=== PATIENT | female | born 2000 | race Caucasian/White ===

== ENCOUNTER 2019-05-09 11:25 | Outpatient (REF) | payer BC, SELFPAY ==
[2019-05-10 15:19] LABS: Chlamydia Result Negative; GC Result Negative; Specimen Description URINE
== END 2019-05-09 11:45 ==
LOC: LBN 11:25
PROVIDERS: PCP Pediatrics; Visit Provider Nurse Practitioner Women's Health
DX: Z11.3 Encounter for screening for infections with a predominantly sexual mode of transmission (principal)
CPT/HCPCS: 87491; 87591

== ENCOUNTER 2020-05-04 07:32 | Outpatient (CLI) | payer BC, SELFPAY ==
[2020-05-05 22:12] LABS: SARS-CoV-2 RNA Undetected (Undetected); SARS-CoV-2 Specimen Source Nasopharynx
== END 2020-05-04 07:52 ==
PROVIDERS: PCP Pediatrics; Visit Provider Pediatrics
DX: Z11.59 Encounter for screening for other viral diseases (principal)
CPT/HCPCS: U0003

== ENCOUNTER 2022-05-23 15:23 | Outpatient (REF) | payer BC, OTHER, SELFPAY ==
--- NOTE | 2022-05-23 13:45 | PAPFT_PTH ---
PATIENT: Darlene Vogt LOC: [facility] U#:[id number] AGE/SX: 21/F ROOM: RE05/23/[address]: Patrizia Chaves NP : 2000 BED: DIS: 05/23/2022 SPEC #: [id number] RECD: 05/23/22 17:04 STATUS: OLU JANES #: [id number] MULUGETA: 05/23/22 13:[address]: Patrizia Chaves NP DEPT: [facility] Cytology RECD BY: Gloria Grimaldo ENTERED: 05/23/22 17:05 SP TYPE: PAPFT OTHR DR: Anju Jimenez MD Tissues: 1 - CX/ENDOCX FOR PAP SMEARS Procedures: PAP THIN PREP/[facility] Screening Comments: [id number] (CHLAMYDIA/GC)
[2022-05-24 14:34] LABS: Chlamydia Result Positive (Negative); GC Result Negative (Negative)
== END 2022-05-23 15:24 | disposition home or self-care (01) ==
LOC: LBN 15:23
PROVIDERS: Visit Provider Nurse Practitioner Women's Health
DX: Z12.4 Encounter for screening for malignant neoplasm of cervix (principal); Z11.3 Encounter for screening for infections with a predominantly sexual mode of transmission
CPT/HCPCS: 87491; 87591; 88142